=== PATIENT | male | born 1995 | race Caucasian/White ===

== ENCOUNTER 2017-01-31 07:14 | Outpatient (CLI) | payer OTHER ==
[~2017-01-31 07:14] MED LIST: FLAGYL500 MG PO; NORCO1 TA1 PO; PERCOCET1 TA1 PO
--- NOTE | 2017-01-31 11:46 | DIAGNOSTIC IMAGING REPORT ---
PROCEDURE: CT THORAX ABD PELVIS W/CONT INDICATION: COLON CANCER TECHNIQUE: 125 ml of Isovue 300 injected intravenously and axial images were obtained of the entire thorax, abdomen, and pelvis with sagittal and coronal reformations. COMPARISON: 07/26/2016 and 10/15/2016 FINDINGS: THORAX: Left Mediport in place. Tip in the cranial SVC. Normal thyroid gland. Nonenlarged new left and right paratracheal, and slight growth of right precarinal lymph node, 6 mm in short axis, previously 4 mm. No axillary, supraclavicular, or hilar adenopathy. No anterior or posterior masses. Normal esophagus without hiatal hernia. Chambers of the heart are normal size. No pericardial effusions. The lungs are clear. The airway is patent and branches normally. No pleural effusions. No suspicious osseous lesions. ABDOMEN: Tiny hypodensity in the cranial aspect of the left liver lobe is stable. No other liver lesions. The decompressed gallbladder, adrenal glands, spleen, pancreas, kidneys (tiny, stable left lower pole cortical cyst), retroperitoneal vasculature and ureters appear normal. Splenule at the splenic hilum. No unusual calcifications. Nonenlarged portacaval and periaortic lymph nodes in the epigastric region, stable size. Normal size mesenteric lymph nodes. No suspicious mass or adenopathy. Ingested material in the stomach. Diffuse, circumferential, long segment wall thickening of the transverse colon from the hepatic flexure through the splenic flexure, similar compared to the most recent prior study. No pericolonic inflammation. Left lower quadrant ostomy in place. PELVIS: Surgical changes of Yi's pouch. There is a focus of low density curvilinear soft tissue measuring 2.3 x 0.7 cm in the deep pelvis in the anterior perirectal fat (series 3 image 133). Non-visualized appendix. Normal partially filled urinary bladder, reproductive structures, pelvic vessels, and lymph nodes. No free fluid. No suspicious osseous lesions. IMPRESSION: 1. 2.3 cm curvilinear soft tissue focus in the deep pelvis anterior perirectal fat, mildly large compared to the most recent prior study. Etiology is uncertain. Continued attention to this area recommended on follow-up studies. 2. New, but nonenlarged superior mediastinal lymph nodes. Nonspecific and likely post infectious/inflammatory. 3. Stable tiny hepatic hypodensity, likely benign. 4. Post sigmoid colectomy with left lower quadrant ostomy and Yi pouch. Probable post appendectomy. All CT scans at this facility use dose modulation, iterative reconstruction, and/or weight-based dosing when appropriate to reduce radiation dose to as low as reasonably achievable.
== END 2017-01-31 23:00 ==
LOC: CT SRH 07:14
DX: C18.9 Malignant neoplasm of colon, unspecified (principal)

== ENCOUNTER 2017-02-20 06:43 | Day surgery (SDC) | payer OTHER ==
[~2017-02-20] VITALS: Ht 167.6 cm; Wt 63.5 kg
--- NOTE | 2017-02-20 07:05 | NUR ---
PRE OP INSTRUCTIONS GIVEN AND SAFETY ISSUES DISCUSSED PT HAD QUESTIONS ANSWERED PT CONFIRMED PROCEDURE PT SIGNED CONSENT
--- NOTE | 2017-02-20 10:19 | Provider's Discharge Care Plan ---
Problem, Goal, Plan Problem List 1. POST-OP COLOSTOMY
--- NOTE | 2017-02-20 10:19 | NUR ---
PT RETURNED FROM PACU PT PASSING FLATUS UP TO BR VOIDED SPONTANOUSLY NO C/O DISCOMFORT
--- NOTE | 2017-02-20 10:19 | Provider's Discharge Care Plan ---
Problem, Goal, Plan Problem List 1. POST-OP COLOSTOMY
--- NOTE | 2017-02-20 10:51 | Provider's Discharge Care Plan ---
Problem, Goal, Plan Problem List 1. POST-OP COLOSTOMY
--- NOTE | 2017-02-20 10:51 | Provider's Discharge Care Plan ---
Problem, Goal, Plan Problem List 1. POST-OP COLOSTOMY
--- NOTE | 2017-02-20 11:01 | OPERATIVE REPORT ---
DATE OF SURGERY: 02/20/2017 SURGEON: Benito Garcia MD PREOPERATIVE DIAGNOSIS: 1. History of colon carcinoma POSTOPERATIVE DIAGNOSES: 1. History of colon carcinoma PROCEDURE PERFORMED: 1. Colonoscopy ANESTHESIA: Total IV general. INDICATIONS: The patient is a 21-year-old male with a previous ruptured colorectal carcinoma. The patient had a Yi procedure and is currently pending reconnection. He is undergoing colonoscopy to rule out residual tumor or metachronous lesions. SURGICAL TECHNIQUE: The patient was taken to the endoscopy suite, where total IV general was administered and the patient was placed in the supine position. The colostomy bag was removed and the colonoscope was inserted through the colostomy and maneuvered to the right side of the colon. The cecum and ileocecal valve were visualized. On withdrawal, this section of the colon was inspected, with no findings or polyps. The rectum was inspected, and there were some round, firm balls of stool present. The rectal stump was manually cleaned out, following which the colonoscope was reinserted. The staple line at end of the rectal stump was visualized, with elida visible. There was some protruding tissue here, consistent with granulation tissue. Multiple samples were taken and frozen section confirmed that this was nonmalignant. On withdrawal, there were no additional findings in the rectum, and the patient left in good condition. No intraoperative complications were encountered.
--- NOTE | 2017-02-20 11:06 | NUR ---
DR CHATTERJEE INTO SEE PT PT HAS NO COMPLAINTS ASKING TO GO HOME REVIEWED DISCHARGE INSTRUCTIONS VERBAL AND WRITTEN PT EXPRESSED UNDERSTANDING PT DISCHARGED AMBULATORY ACCOMPANIED BY FRIEND
--- NOTE | 2017-02-20 12:30 | NUR ---
TO PACU AWAKE AND ALERT, VSS AND IV INFUSING, GOIOD RESPIR EFFORTO BE TRANSFEERED TO SCU IN GOOD CONDITION,
[2017-02-20 12:46] VITALS: BP 123/61
== END 2017-02-20 11:08 | disposition home or self-care (01) ==
LOC: OR SRH 06:43 → SCU SRH 06:43 → OR SRH 08:00
PROVIDERS: Surgery
PROC: 0DBP8ZX Excision of Rectum, Via Natural or Artificial Opening Endoscopic, Diagnostic (ICD-10-PCS; principal; 2017-02-20 08:45)
DX: Z85.030 Personal history of malignant carcinoid tumor of large intestine (principal); R93.3 Abnormal findings on diagnostic imaging of other parts of digestive tract; Z90.49 Acquired absence of other specified parts of digestive tract
CPT/HCPCS: 29229; 29240; 50004; 60001; 82900; 82944; 83526

== ENCOUNTER 2017-02-21 17:11 | Inpatient (IN) | payer OTHER ==
[~2017-02-21] VITALS: Ht 167.6 cm; Wt 63.2 kg
[2017-02-24] VITALS (7 sets, daily range): BP systolic 124–145; BP diastolic 81–98
--- NOTE | 2017-02-24 20:09 | OPERATIVE REPORT ---
DATE OF SURGERY: 02/24/2017 SURGEON: Benito Garcia MD BATCH MIXER OPERATOR: Russell Mota III, MD PREOPERATIVE DIAGNOSIS: 1. Status post colostomy and colon cancer POSTOPERATIVE DIAGNOSIS: 1. Status post colostomy and colon cancer PROCEDURES PERFORMED: 1. Laparoscopic colostomy takedown 2. Removal of infusion port ANESTHESIA: General. COMPLICATIONS: No intraoperative complications were encountered. INDICATIONS: The patient is a 21-year-old man with perforated colon cancer, who has undergone resective surgery and adjuvant chemotherapy. Preoperative colonoscopy was also negative. SURGICAL TECHNIQUE: The patient was taken to the operating room, where a general anesthetic was administered and patient prepped and draped in the usual sterile fashion in low lithotomy position. A right subcostal puncture was made and then Veress needle used to insufflate. A 5 mm cannula was passed and visualization was obtained. This demonstrated extensive adhesions to the previous midline incision. These were taken down through 1 additional trocar was placed on the right side of the abdomen. Once the adhesions were freed up the pelvis was approached. Adhesions to the old colostomy were taken down and the pelvis was explored. Small bowel was freed up using direct sharp dissection. There were some dense adhesions down low in the pelvis, but there was nothing that looked like it was residual tumor or studding of any sort. For this reason, no biopsies were necessary as everything looked completely normal once the adhesions and soft tissue were taken down. There was 1 small area in the anterior rectum where dense adhesions were divided that looked suspicious for perforation. The rectum was insufflated and there was a tiny air leak at this site. This was repaired using interrupted 2-0 Surgidac sutures placed with the EndoStitch with external knot tying. Insufflation following suture revealed no additional air leak. The left lower quadrant colostomy site was cut loose in the abdominal wall. It was pulled up from the abdomen and redundant and scarred colon trimmed away. A pursestring was placed using the pursestring device and 4-0 Maxon. A 31 mm EEA anvil was placed and tied in. This was then returned to the abdominal cavity. The abdominal fascia was closed in a vertical direction using running 0 Maxon suture. The abdomen was re-insufflated. The EEA anastomosis was carried out using a stapling device. Insufflation following stapling revealed no evidence of air leak. Both tissue donuts were complete. Extra fluid was suctioned away and local anesthetic instilled. Gas was evacuated. The infraumbilical trocar site was closed at the fascia with a single 0 Maxon suture. The skin sites were closed with either running or interrupted subcuticular 4-0 Vicryl suture. Steri-Strips and dressings were placed at all sites and the patient left in stable condition.
[2017-02-25 02:00] VITALS: BP 118/76
[2017-02-25 06:50] VITALS: BP 122/68
[2017-02-25 10:16] VITALS: BP 116/74
[2017-02-25 14:13] VITALS: BP 127/67
--- NOTE | 2017-02-25 16:10 | Progress Note ---
Subjective General Pt. seen this am on rounds. He was up and about without any complaints. No stool or gas, no nausea and vomiting. Physical Exam Vital Signs / I&Os Vital Signs Date Time Temp Pulse Resp B/P Pulse O2 O2 Flow FiO2 Ox Delivery Rate 02/25 1413 98.4 63 18 127/67 98 02/25 1016 97.9 64 18 116/74 97 Room Air 02/25 0650 98.2 67 18 122/68 97 Room Air 0.0 02/25 0200 98.1 54 18 118/76 98 Room Air 02/24 2016 66 18 124/81 95 Room Air 02/24 1953 78 18 138/83 96 Room Air 02/24 1930 Room Air 02/24 1915 57 18 139/85 100 Room Air 02/24 1845 97.9 70 18 145/82 100 Nasal 2.0 Cannula 02/24 1833 58 18 135/95 100 Nasal 3.0 Cannula 02/24 1817 69 18 137/91 100 Nasal 3.0 Cannula 02/24 1758 97.7 58 18 135/98 100 Nasal 3.0 Cannula 02/24 1735 97.9 58 12 137/92 100 Nasal 3.0 Cannula 02/24 1730 64 14 141/95 100 Nasal Cannula 02/24 1725 79 17 98/75 100 Nasal 4.0 Cannula 02/24 1720 80 14 153/92 100 Nasal 4.0 Cannula 02/24 1715 74 16 138/84 100 MASK 6.0 02/24 1710 84 20 133/84 97 MASK 6.0 02/24 1705 68 14 135/85 95 MASK 4.0 02/24 1700 97.5 69 16 141/77 99 MASK 6.0 I&O 02/24 0800 02/24 1600 02/25 0000 Intake Total 2300 1340 Output Total 1660 Balance 2300 -320 General Appearance Alert, Oriented X3, Cooperative, No acute distress Abdomen dresssings are intact, bowel sounds present, non distended. Assessment and Plan Problem List 1. S/P colostomy takedown Plan await return of bowel function, flatus and stool
[2017-02-25 17:41] VITALS: BP 115/76
[2017-02-25 22:23] VITALS: BP 130/74
[2017-02-26 02:13] VITALS: BP 125/68
[2017-02-26 07:14] VITALS: BP 123/63
--- NOTE | 2017-02-26 07:33 | Progress Note ---
Subjective General Pt is 2 days post colostomy take down. He passed some rectal mucous and feels fine on clear liquids. Physical Exam Vital Signs / I&Os Vital Signs Date Time Temp Pulse Resp B/P Pulse O2 O2 Flow FiO2 Ox Delivery Rate 02/26 0714 97.9 62 18 123/63 99 Room Air 0.0 02/26 0213 98.1 61 15 125/68 97 Room Air 02/25 2223 98.1 71 17 130/74 98 Room Air 02/25 1741 97.9 59 18 115/76 97 02/25 1413 98.4 63 18 127/67 98 02/25 1016 97.9 64 18 116/74 97 Room Air I&O 02/25 0800 02/25 1600 02/26 0000 Intake Total 1380 679 240 Output Total 1250 1200 1350 Balance 130 -521 -1110 General Appearance Alert, Oriented X3, Cooperative, No acute distress Abdomen Normal bowel sounds, Soft, wounds without erythema Assessment and Plan Problem List 1. S/P colostomy takedown Plan increase oral intake and regular diet by this afternoon, can go home it tolerates his diet.
[2017-02-26] MEDS ORDERED: NORCO1 TA1 PO (07:35)
--- NOTE | 2017-02-26 07:36 | Provider's Discharge Care Plan ---
Problem, Goal, Plan Problem List 1. S/P colostomy takedown
--- NOTE | 2017-02-26 07:36 | Provider's Discharge Care Plan ---
Problem, Goal, Plan Problem List 1. S/P colostomy takedown
[2017-02-26 11:55] VITALS: BP 129/84
[2017-02-26 14:35] VITALS: BP 128/68
[2017-02-26] MEDS ORDERED: PERCOCET1 TA1 PO (18:18)
[2017-02-26 18:23] VITALS: BP 146/75
== END 2017-02-26 19:00 | disposition home or self-care (01) | DRG 221 ==
LOC: ACUTE2 SRH 02-24 09:11 → OB SRH 02-24 09:11 → U SRH 02-24 09:30 → ACUTE2 SRH 02-24 18:08
PROVIDERS: ADMIT Surgery
PROC: 05PY33Z Removal of Infusion Device from Upper Vein, Percutaneous Approach (ICD-10-PCS; principal; 2017-02-24 11:00)
PROC: 0DQP4ZZ Repair Rectum, Percutaneous Endoscopic Approach (ICD-10-PCS; principal; 2017-02-24 11:00)
PROC: 0DNP4ZZ Release Rectum, Percutaneous Endoscopic Approach (ICD-10-PCS; principal; 2017-02-24 11:00)
PROC: 0JPT0XZ Removal of Tunneled Vascular Access Device from Trunk Subcutaneous Tissue and Fascia, Open Approach (ICD-10-PCS; principal; 2017-02-24 11:00)
PROC: 0DBN4ZZ Excision of Sigmoid Colon, Percutaneous Endoscopic Approach (ICD-10-PCS; principal; 2017-02-24 11:00)
PROC: 0DN84ZZ Release Small Intestine, Percutaneous Endoscopic Approach (ICD-10-PCS; principal; 2017-02-24 11:00)
DX: Z43.3 Encounter for attention to colostomy (principal); Z45.2 Encounter for adjustment and management of vascular access device; Z85.038 Personal history of other malignant neoplasm of large intestine; K66.0 Peritoneal adhesions (postprocedural) (postinfection); Z15.09 Genetic susceptibility to other malignant neoplasm
CPT/HCPCS: 50002; 60001; 70002; 80575; 82284; 82320; 82385; 82794; 82897; 83587; 83919; 83982; 84038; 84344; 84532; 90001; 90047; 90155; 91004; 95059